=== PATIENT | female | born 1975 | race Caucasian/White ===

== ENCOUNTER 2017-11-01 11:32 | Outpatient (CLI) | payer OTHER | END 2017-11-01 12:00 | disposition home or self-care (01) | LOC: NUCLEAR 11:32 | DX: R60.0 Localized edema (principal); M62.831 Muscle spasm of calf; I87.2 Venous insufficiency (chronic) (peripheral) ==

== ENCOUNTER 2022-03-15 14:45 | Inpatient (IN) | payer OTHER ==
[~2022-03-15] VITALS: Ht 165.1 cm; Wt 61.2 kg
== END 2022-03-17 14:15 | DRG 690 ==
LOC: ER 14:45 → SEC-K 19:59
PROVIDERS: ADMIT Internal Medicine; ATTEND Internal Medicine
DX: N39.0 Urinary tract infection, site not specified (principal); A04.72 Enterocolitis due to Clostridium difficile, not specified as recurrent; Z20.822 Contact with and (suspected) exposure to COVID-19